=== PATIENT | male | born 1975 | race Caucasian/White ===

== ENCOUNTER 2018-10-16 19:15 | Emergency (ER) | payer BC ==
[2018-10-16] MEDS ORDERED: Sodium Chloride 0.9% 1,000 ML IV STA (20:40)
--- NOTE | 2018-10-16 20:52 | ED PDOC ---
HPI: Abdomen Time Seen by Provider: 10/16/18 20:29 Chief Complaint (Nursing): Abdominal Pain Chief Complaint (Provider): Abdominal Pain History Per: Patient History/Exam Limitations: no limitations Onset/Duration Of Symptoms: Days (x2) Current Symptoms Are (Timing): Still Present Additional Complaint(s): 43 year old male with pmHx of HTN and DM, presents to ED with a complaint of right-sided abdominal pain that radiates to back associated with vomiting since yesterday. He denies nausea, diarrhea, urinary complaints, chest pain, or shortness of breath. Patient reports symptoms were not as bad upon onset but gradually became worse. PCP: none provided Past Medical History Reviewed: Historical Data, Nursing Documentation, Vital Signs Vital Signs: Last Vital Signs Temp 98.5 F 10/16/18 19:35 Pulse 71 10/16/18 19:35 Resp 18 10/16/18 19:35 BP 198/111 H 10/16/18 19:35 Pulse Ox 99 10/16/18 19:35 - Medical History PMH: Diabetes, HTN - Family History Family History: States: Unknown Family Hx - Immunization History Hx Tetanus Toxoid Vaccination: No Hx Influenza Vaccination: No Hx Pneumococcal Vaccination: No - Home Medications Home Medications: Ambulatory Orders Medication Instructions Recorded Ibuprofen [Motrin] 600 mg PO TID 7 Days tab 10/16/18 - Allergies Allergies/Adverse Reactions: Allergies Allergy/AdvReac Type Severity Reaction Status Date / Time No Known Allergies Allergy Unverified 10/16/18 19:35 Review of Systems ROS Statement: Except As Marked, All Systems Reviewed And Found Negative Cardiovascular: Negative for: Chest Pain Respiratory: Negative for: Shortness of Breath Gastrointestinal: Positive for: Vomiting, Abdominal Pain (right-sided). Negative for: Nausea, Diarrhea Genitourinary Male: Negative for: Dysuria, Hematuria Musculoskeletal: Positive for: Back Pain (right-sided) Physical Exam - Reviewed Nursing Documentation Reviewed: Yes Vital Signs Reviewed: Yes - Physical Exam Appears: Positive for: Non-toxic, Uncomfortable. Negative for: No Acute Distress Head Exam: Positive for: ATRAUMATIC, NORMAL INSPECTION, NORMOCEPHALIC Skin: Positive for: Normal Color Eye Exam: Positive for: Normal appearance ENT: Positive for: Normal ENT Inspection Neck: Positive for: Normal Cardiovascular/Chest: Positive for: Regular Rate, Rhythm, Chest Non Tender Respiratory: Positive for: Normal Breath Sounds. Negative for: Respiratory Distress Pulses-Dorsalis Pedis (L): 2+ Pulses-Dorsalis Pedis (R): 2+ Gastrointestinal/Abdominal: Positive for: Soft, Tenderness (RUQ). Negative for: Other (umbilical tenderness) Back: Positive for: R CVA Tenderness. Negative for: L CVA Tenderness Extremity: Positive for: Normal ROM (upper/lower) Neurologic/Psych: Positive for: Alert, Oriented. Negative for: Motor/Sensory Deficits - Laboratory Results Result Diagrams: 10/16/18 22:00 10/16/18 22:00 Interpretation Of Abn Labs: elevated glucose - ECG O2 Sat by Pulse Oximetry: 99 (RA) Pulse Ox Interpretation: Normal - CT Scan/US US Other Rad Studies (CT/US): Radiology Report Reviewed Other Rad Interpretation: no acute ct Other Rad Studies (CT/US): Read By Radiologist Other Rad Interpretation: stones in the kidneys - Progress ED Course And Treament: 2340: Stable. AAOx3. Pain free. Tolerated PO. Glucose elevation likely cause of the lipase elevation. No pancreas findings on the ct. Kidney stones, but in the kidney. Medical Decision Making Medical Decision Making: Time: 2029 Initial Plan: * Labs * IV fluids * Toradol 15 mg IV * Zofran 4mg IV * US ABD 2311 Abdomen/Pelvis CT FINDINGS: LUNG BASES: The lung bases appear clear. No pleural effusions are seen. LIVER: There is diffuse hepatic hypoattenuation compatible with fatty infiltration. GALLBLADDER AND BILE DUCTS: The gallbladder appears within normal limits. No radioopaque gallstones are seen. No biliary ductal dilatation is evident. PANCREAS: Unremarkable. SPLEEN: Unremarkable. ADRENAL GLANDS: Unremarkable. KIDNEYS, URETERS, AND BLADDER: Several punctate non-obstructing calculi are present in the mid pole of the right and left kidney. STOMACH AND BOWEL: Unremarkable appearance of the stomach and bowel. No evidence of bowel obstruction. No evidence suggesting enteritis or colitis. APPENDIX: No evidence of acute appendicitis on CT examination. PERITONEUM: No free fluid. No free air. LYMPH NODES: No lymphadenopathy is evident. REPRODUCTIVE: Unremarkable as visualized. VASCULATURE: No evidence of abdominal aortic aneurysm. BONES: No aggressive appearing osseous lesion. No acute osseous pathology evident. IMPRESSION: 1. Fatty liver. 2. Several punctate non-obstructing calculi are present in the mid pole of the right and left kidney. Scribe Attestation: Documented by Nataliia Recinos, acting as a scribe for Kiko Grigsby MD. Provider Scribe Attestation: All medical record entries made by the Scribe were at my direction and personally dictated by me. I have reviewed the chart and agree that the record accurately reflects my personal performance of the history, physical exam, medical decision making, and the department course for this patient. I have also personally directed, reviewed, and agree with the discharge instructions and disposition. Disposition - Clinical Impression Clinical Impression: Hyperglycemia without ketosis, Abdominal pain, Kidney stone - Patient ED Disposition Is Patient to be Admitted: No Counseled Patient/Family Regarding: Studies Performed, Diagnosis, Need For Followup, Rx Given - Disposition Referrals: [facility] [Outside] - 10/19/18 Disposition: Routine/Home Disposition Time: 23:43 Condition: STABLE Additional Instructions: Return if not better in 3 days. Prescriptions: Ibuprofen [Motrin] 600 mg PO TID 7 Days tab Instructions: Kidney Stone Diet, Acute Abdomen (Belly Pain), Hyperglycemia, Adult Print Language: AMERICAN
[2018-10-16 22:04] LABS: BASO % 0.5 % (0.0-2.0); EOS % 0.4 % (0.0-4.0); HEMOGLOBIN 17.2 g/dL (12.0-18.0); LYMPH # 1.1 K/uL (1.0-4.3); LYMPH % 15.6 % (20.0-40.0); MEAN CELL VOLUME 94.7 fl (80.0-94.0); MEAN CORPUSCULAR HEMOGLOBIN 32.8 pg (27.0-31.0); MEAN CORPUSCULAR HGB CONC 34.6 g/dL (33.0-37.0); MEAN PLATELET VOLUME 8.5 fl (7.2-11.7); MONO # 0.5 K/uL (0.0-0.8); MONO % 7.1 % (0.0-10.0); NEUT # 5.5 K/uL (1.8-7.0); NEUT % 76.4 % (50.0-75.0); NRBC % 0.2 % (0.0-0.0); RBC 5.25 Mil/uL (4.40-5.90); RED CELL DISTRIBUTION WIDTH 12.6 % (11.5-14.5); WHITE BLOOD COUNT 7.2 K/uL (4.8-10.8)
[2018-10-16 22:18] LABS: ALBUMIN 4.7 g/dL (3.5-5.0); ALT/SGPT 67 U/L (21-72); AST/SGOT 58 U/L (17-59); BLOOD UREA NITROGEN 14 mg/dl (9-20); CALCIUM 10.3 mg/dL (8.4-10.2); GFR NON-AFRICAN AMERICAN > 60; INR 0.9; LIPASE 574 U/L (23-300); PROTHROMBIN TIME 10.7 Seconds (9.8-13.1)
[2018-10-16 22:20] LABS: PARTIAL THROMBOPLASTIN TIME 30.7 Seconds (25.6-37.1)
[2018-10-17 00:35] VITALS: BP 164/88; PULSE 78; RESP 16; TEMP 98.4; O2SAT 98
--- NOTE | 2018-10-17 17:36 | CT ---
Date of service: 10/16/2018 PROCEDURE: CT Abdomen and Pelvis. HISTORY: R/O stone COMPARISON: None. TECHNIQUE: Contiguous axial images of the abdomen and pelvis without oral or intravenous contrast material. Additional 2D sagittal and coronal reformats generated. Radiation dose: Total exam DLP = 508.38 mGy-cm. This CT exam was performed using one or more of the following dose reduction techniques: Automated exposure control, adjustment of the mA and/or kV according to patient size, and/or use of iterative reconstruction technique. FINDINGS: LOWER THORAX: Minor passive/dependent type atelectasis both posterior lower lung ovalle.. Minimal scarring changes seen in the left lung base and left lingular region. No effusion or basilar pneumothorax. Small hiatal hernia. Heart size within range of normal. No significant pericardial effusion. LIVER: Liver exhibits relatively normal size measuring approximately 17.6 cm in CC dimension. Moderate to fairly significant diffuse fatty hepatic infiltration. No obvious hepatic masses collections or calcifications. GALLBLADDER AND BILE DUCTS: Unremarkable. PANCREAS: Pancreas appears slightly atrophic and fatty replaced. No obvious pancreatic masses collections or calcifications.. No ductal dilatation. SPLEEN: Unremarkable. No splenomegaly. ADRENALS: Unremarkable. KIDNEYS AND URETERS: Multiple tiny some of which are punctate nonobstructing calcifications are seen scattered about both renal collecting system no evidence hydronephrosis.. There is a small approximately 11.7 mm cyst a anterolateral cortex mid pole right kidney. BLADDER: The urinary bladder is physiologically distended. No evidence of intraluminal urinary bladder calculi. REPRODUCTIVE: Unremarkable. APPENDIX: Normal appendix. BOWEL: Evaluation of the bowel is somewhat limited due to the lack of oral contrast material. Stomach is incompletely distended. Visualized loops small bowel exhibit normal contour and caliber however the note is made of fecalized content within multiple loops of small bowel consistent with stasis. There is moderate amount of stool seen throughout the cecum at ascending transverse and proximal descending colon consistent with mild fecal retention/constipation PERITONEUM: Unremarkable. No fluid collection. No free air. Small fat containing umbilical hernia. LYMPH NODES: Unremarkable. No enlarged lymph nodes. VASCULATURE: Unremarkable. No aortic aneurysm. No aortic atherosclerotic calcification or mural plaque present. BONES: Minor multilevel degenerative spondylosis of the lower thoracic and lumbar spine. OTHER FINDINGS: None. IMPRESSION: Multiple small nonobstructing calcification seen collecting system both kidneys. No evidence of hydronephrosis. Small cyst right kidney. Moderate to fairly significant fatty infiltration. Findings consistent with constipation and fecal stasis within multiple loops of small bowel.
--- NOTE | 2018-10-17 18:48 | US ---
Date of service: 10/16/2018 HISTORY: RUQ and epigastric pain COMPARISON: None. TECHNIQUE: Sonographic evaluation of the right upper quadrant of the abdomen. FINDINGS: LIVER: Measures 15.2 cm in length. Smooth contour though increased hepatic echogenicity likely due to fatty infiltration however other infiltrative hepatocellular disease process not excluded.. Of the liver parenchyma. No mass. No intrahepatic bile duct dilatation. GALLBLADDER: Unremarkable. No gallstones. No sonographic Damon sign COMMON BILE DUCT: Measures 2.0 mm. No stones. No dilatation. PANCREAS: Unremarkable as visualized. No mass. No ductal dilatation. RIGHT KIDNEY: Measures 12.1 x 5.6 x 6.8 cm in length. Normal echogenicity. No calculus, mass, or hydronephrosis. Small cyst measuring 1.1 x 0.9 x 0.9 seen arising from the upper/midpole right kidney. AORTA: No aneurysmal dilatation. IVC: Unremarkable. OTHER FINDINGS: None . IMPRESSION: Increased hepatic echotexture likely due to fatty hepatic infiltration however other infiltrative hepatocellular disease process not excluded. Small cyst upper/midpole right kidney.
== END 2018-10-17 00:33 | disposition home or self-care (01) ==
LOC: H.ER 19:15
DX: E11.65 Type 2 diabetes mellitus with hyperglycemia (principal); R10.9 Unspecified abdominal pain; N20.0 Calculus of kidney; I10 Essential (primary) hypertension; K76.0 Fatty (change of) liver, not elsewhere classified
CPT/HCPCS: 74176; 76705; 80053; 83690; 85025; 85610; 85730; 96361; 96374; 96375; 99283; J1885; J2405; J7030